=== PATIENT | female | born 1930 | race Caucasian/White ===

== ENCOUNTER 2016-12-26 14:28 | Inpatient (IN) ==
[2016-12-26] MEDS ORDERED: SODIUM CHLORIDE 0.9% 500 ML IV STA (14:50)
[2016-12-26] MEDS ORDERED: NALOXONE 0.4 MG/ML VIAL IV STA (14:50)
[2016-12-26] MEDS ORDERED: NALOXONE 0.4 MG/ML VIAL ONE (15:01)
[2016-12-26 15:32] LABS: Apearance,Urine CLEAR (Clear); Bilirubin,Urine Negative (Negative); Blood, Urine Negative (Negative); Glucose,Urine (UA) Negative (Negative); Ketones,Urine Negative (Negative); Nitrite,Urine Negative (Negative); Protein,Urine Negative; RBC,Urine <1 /HPF (0-4); Squamous Epithelial Cell,Urine Occasional /HPF (0-10); Urine Color Straw (Yellow); Urine Specific Gravity 1.004 (1.001-1.035); Urine Urobilinogen < 2.0 EU/DL (0.2-1.0); WBC,Urine 1 /HPF (0-6)
[2016-12-26 15:37] LABS: Basophils # 0.1 10*3/uL (0.0-0.2); Basophils % 0.5 % (0.0-0.8); Eosinophils # 0.2 10*3/uL (0.0-0.87); Eosinophils % 1.6 % (0.00-10.9); Hematocrit 38.8 VOL% (35.7-47.0); Hemoglobin 12.9 GM/DL (12.0-16.0); Immature Granulocytes % 0.4 %; Immature Granulocytes Absolute 0.06 #; Lymphocytes # 2.5 10*3/uL (1.4-4.0); Lymphocytes % 17.7 % (21.3-54.2); Mean Corpuscular HGB Conc 33.2 GM/DL (32-36); Mean Corpuscular Hemoglobin 28 PG (27-34); Mean Corpuscular Volume 85.1 FL (87-102); Mean Platelet Volume 13.7 FL (9.6-12.0); Monocytes % 7.1 % (1.7-12.7); Neutrophils # 10.3 10*3/uL (1.4-7.4); Neutrophils % 72.7 % (38.7-73.9); Platelet Count 146 T/CUMM (130-400); Red Blood Count 4.56 MC/CUMM (3.8-5.5); Red Cell Distribution Width 13.9 % (9.3-17.3); White Blood Count 14.1 T/CUMM (4-12)
[2016-12-26 15:55] LABS: Barbiturates Screen,Urine Negative (Negative); Benzodiazepines Screen,Urine Negative (Negative); Cannabinoid Screen,Urine Negative (Negative); Opiate Screen,Urine Positive (Negative); Phencyclidine Screen,Urine Negative (Negative)
[2016-12-26 15:58] LABS: Ammonia 17 UMOL/L (11-32)
[2016-12-26 16:16] LABS: Alanine Aminotransferase 23 U/L (13-56); Albumin 3.8 G/DL (3.4-5.0); Alkaline Phosphatase 125 U/L (45-117); Aspartate Amino Transferase 22 U/L (0-37); Calcium 8.8 MG/DL (8.5-10.1); Total Protein 6.8 G/DL (6.4-8.3)
[2016-12-26 16:17] LABS: Blood Urea Nitrogen 39 MG/DL (7-18); Glucose 164 MG/DL (74-106); Osmolality,Calculated 289.5 MOS/KG (273-304); Potassium 3.9 MMOL/L (3.5-5.1); Sodium 139 MMOL/L (136-145)
[2016-12-26 17:11] LABS: INR 1.1; PT Patient Result 11.3 SECS; Partial Thromboplastin Time 25.5 SECS (0-40)
[2016-12-26] MEDS ORDERED: GLUCAGON 1 MG VIAL IM PRN (17:55)
[2016-12-26] MEDS ORDERED: DEXTROSE 50% 25 GM/50 ML VIAL IV PRN (17:55)
[2016-12-26] MEDS ORDERED: ONDANSETRON 4 MG/2 ML VIAL IV PRN (17:55)
[2016-12-26] MEDS ORDERED: LACTULOSE 20 GM/30 ML UDCUP PO PRN (17:55)
[2016-12-26] MEDS ORDERED: INFLUENZA VIRUS VACCINE 0.5 ML SYRINGE IM ONE (18:10)
[2016-12-26] MEDS: SODIUM CHLORIDE 0.9% 1,000 ML IV SCH (18:34)
[2016-12-26] MEDS: PIPERACILLIN/TAZOBACTAM 3,375 MG in SODIUM CHLORIDE 0.9% 100 ML IV SCH (19:18)
[2016-12-26] MEDS: ENOXAPARIN 30 MG/0.3 ML SYRINGE SUBCUT SCH (19:20)
[2016-12-26] MEDS: DOCUSATE SODIUM 100 MG CAPSULE PO SCH (22:06)
[2016-12-26] MEDS: ATORVASTATIN 20 MG TABLET PO SCH (22:06)
[2016-12-26] MEDS: INSULIN REGULAR 100 UNIT/ML SUBCUT SCH (22:09)
[2016-12-27] MEDS: ACETAMINOPHEN 325 MG TABLET PO PRN ×2 (00:35→06:12)
[2016-12-27] MEDS: PIPERACILLIN/TAZOBACTAM 3,375 MG in SODIUM CHLORIDE 0.9% 100 ML IV SCH ×3 (02:36→18:33)
[2016-12-27 04:31] LABS: Basophils # 0.1 10*3/uL (0.0-0.2); Basophils % 0.5 % (0.0-0.8); Eosinophils # 0.3 10*3/uL (0.0-0.87); Eosinophils % 2.4 % (0.00-10.9); Hematocrit 34.1 VOL% (35.7-47.0); Hemoglobin 11.3 GM/DL (12.0-16.0); Immature Granulocytes % 0.4 %; Immature Granulocytes Absolute 0.04 #; Lymphocytes # 2.2 10*3/uL (1.4-4.0); Lymphocytes % 20.1 % (21.3-54.2); Mean Corpuscular HGB Conc 33.1 GM/DL (32-36); Mean Corpuscular Hemoglobin 28 PG (27-34); Mean Corpuscular Volume 84.6 FL (87-102); Mean Platelet Volume 14.7 FL (9.6-12.0); Monocytes # 0.9 10*3/uL (0.11-0.8); Monocytes % 7.8 % (1.7-12.7); Neutrophils # 7.5 10*3/uL (1.4-7.4); Neutrophils % 68.8 % (38.7-73.9); Platelet Count 124 T/CUMM (130-400); Red Blood Count 4.03 MC/CUMM (3.8-5.5); Red Cell Distribution Width 14.1 % (9.3-17.3); White Blood Count 10.9 T/CUMM (4-12)
[2016-12-27 05:11] LABS: Albumin 3.1 G/DL (3.4-5.0); Bilirubin,Total 0.6 MG/DL (0.2-1.0); Calcium 8.2 MG/DL (8.5-10.1); Osmolality,Calculated 299.8 MOS/KG (273-304); Potassium 3.6 MMOL/L (3.5-5.1); Total Protein 5.7 G/DL (6.4-8.3)
[2016-12-27] MEDS ORDERED: RANITIDINE 150 MG TABLET PO SCH (09:00)
[2016-12-27] MEDS ORDERED: PANTOPRAZOLE 40 MG VIAL IV SCH (09:00)
[2016-12-27] MEDS: INSULIN REGULAR 100 UNIT/ML SUBCUT SCH ×4 (09:40→21:01)
[2016-12-27] MEDS: PANTOPRAZOLE 40 MG TABLET PO SCH (10:35)
[2016-12-27] MEDS: DOCUSATE SODIUM 100 MG CAPSULE PO SCH ×2 (10:35→20:49)
[2016-12-27] MEDS: amLODIPine 5 MG TABLET PO SCH (10:35)
[2016-12-27] MEDS: sitaGLIPtin 25 MG TABLET PO SCH (10:35)
[2016-12-27] MEDS: MELOXICAM 7.5 MG TABLET PO SCH (10:35)
[2016-12-27] MEDS ORDERED: TUBERCULIN SKIN TEST 0.1 ML SYRINGE INTRADERM ONE (17:30)
[2016-12-27] MEDS: ENOXAPARIN 30 MG/0.3 ML SYRINGE SUBCUT SCH (20:48)
[2016-12-27] MEDS: ATORVASTATIN 20 MG TABLET PO SCH (20:49)
[2016-12-27] MEDS: ZOLPIDEM 5 MG TABLET PO PRN (22:36)
[2016-12-28] MEDS: PIPERACILLIN/TAZOBACTAM 3,375 MG in SODIUM CHLORIDE 0.9% 100 ML IV SCH ×2 (02:30→09:41)
[2016-12-28] MEDS: SODIUM CHLORIDE 0.9% 1,000 ML IV SCH ×2 (03:59→04:00)
[2016-12-28] MEDS: INSULIN REGULAR 100 UNIT/ML SUBCUT SCH ×4 (07:50→21:12)
[2016-12-28] MEDS: sitaGLIPtin 25 MG TABLET PO SCH (09:26)
[2016-12-28] MEDS: DOCUSATE SODIUM 100 MG CAPSULE PO SCH ×2 (09:27→21:11)
[2016-12-28] MEDS: MELOXICAM 7.5 MG TABLET PO SCH (09:29)
[2016-12-28] MEDS: PANTOPRAZOLE 40 MG TABLET PO SCH (09:34)
[2016-12-28] MEDS: amLODIPine 5 MG TABLET PO SCH (09:34)
[2016-12-28] MEDS: ONDANSETRON 4 MG TABLET PO PRN (17:45)
[2016-12-28] MEDS: ATORVASTATIN 20 MG TABLET PO SCH (21:11)
[2016-12-28] MEDS: ZOLPIDEM 5 MG TABLET PO PRN (21:11)
[2016-12-28] MEDS: GABAPENTIN 300 MG CAPSULE PO SCH (21:11)
[2016-12-28] MEDS: ENOXAPARIN 30 MG/0.3 ML SYRINGE SUBCUT SCH (21:12)
[2016-12-29 07:34] LABS: Basophils # 0.1 10*3/uL (0.0-0.2); Basophils % 0.8 % (0.0-0.8); Eosinophils # 0.2 10*3/uL (0.0-0.87); Eosinophils % 2.9 % (0.00-10.9); Hematocrit 36.3 VOL% (35.7-47.0); Hemoglobin 12.1 GM/DL (12.0-16.0); Immature Granulocytes % 0.6 %; Immature Granulocytes Absolute 0.05 #; Lymphocytes # 1.1 10*3/uL (1.4-4.0); Lymphocytes % 13.4 % (21.3-54.2); Mean Corpuscular HGB Conc 33.3 GM/DL (32-36); Mean Corpuscular Hemoglobin 28 PG (27-34); Mean Corpuscular Volume 84.6 FL (87-102); Mean Platelet Volume 15.3 FL (9.6-12.0); Monocytes # 0.7 10*3/uL (0.11-0.8); Monocytes % 8.2 % (1.7-12.7); Neutrophils # 5.9 10*3/uL (1.4-7.4); Neutrophils % 74.1 % (38.7-73.9); Platelet Count 124 T/CUMM (130-400); Red Blood Count 4.29 MC/CUMM (3.8-5.5); Red Cell Distribution Width 13.9 % (9.3-17.3); White Blood Count 7.9 T/CUMM (4-12)
[2016-12-29] MEDS: INSULIN REGULAR 100 UNIT/ML SUBCUT SCH ×4 (07:39→21:24)
[2016-12-29 07:59] LABS: Calcium 8.8 MG/DL (8.5-10.1); Osmolality,Calculated 284.3 MOS/KG (273-304); Potassium 3.7 MMOL/L (3.5-5.1)
[2016-12-29] MEDS: MELOXICAM 7.5 MG TABLET PO SCH (09:30)
[2016-12-29] MEDS: GABAPENTIN 300 MG CAPSULE PO SCH ×3 (09:30→21:19)
[2016-12-29] MEDS: amLODIPine 5 MG TABLET PO SCH (09:30)
[2016-12-29] MEDS: DOCUSATE SODIUM 100 MG CAPSULE PO SCH ×2 (09:30→21:18)
[2016-12-29] MEDS: PANTOPRAZOLE 40 MG TABLET PO SCH (09:31)
[2016-12-29] MEDS: sitaGLIPtin 25 MG TABLET PO SCH (09:31)
[2016-12-29] MEDS: ONDANSETRON 4 MG TABLET PO PRN (10:25)
[2016-12-29] MEDS: AZITHROMYCIN 250 MG TABLET PO SCH (12:14)
[2016-12-29] MEDS: BENZONATATE 100 MG CAPSULE PO PRN ×2 (15:35→21:18)
[2016-12-29] MEDS: ACETAMINOPHEN 325 MG TABLET PO PRN (17:28)
[2016-12-29] MEDS ORDERED: DEXTROSE 5% NACL 0.45% 1,000 ML IV SCH (20:30)
[2016-12-29] MEDS ORDERED: LEVOFLOXACIN INJ 500 MG in PREMIX 1 EACH IV SCH (21:00)
[2016-12-29] MEDS: ZOLPIDEM 5 MG TABLET PO PRN (21:20)
[2016-12-29] MEDS: ATORVASTATIN 20 MG TABLET PO SCH (21:24)
[2016-12-29] MEDS: ENOXAPARIN 30 MG/0.3 ML SYRINGE SUBCUT SCH (21:26)
[2016-12-30 04:39] LABS: Calcium 8.7 MG/DL (8.5-10.1); Osmolality,Calculated 282.4 MOS/KG (273-304); Potassium 3.7 MMOL/L (3.5-5.1)
[2016-12-30 07:49] VITALS: BP 115/60
[2016-12-30] MEDS: PANTOPRAZOLE 40 MG TABLET PO SCH (08:40)
[2016-12-30] MEDS: GABAPENTIN 300 MG CAPSULE PO SCH (08:40)
[2016-12-30] MEDS: amLODIPine 5 MG TABLET PO SCH (08:40)
[2016-12-30] MEDS: MELOXICAM 7.5 MG TABLET PO SCH (08:40)
[2016-12-30] MEDS: AZITHROMYCIN 250 MG TABLET PO SCH (08:41)
[2016-12-30] MEDS: BENZONATATE 100 MG CAPSULE PO PRN (08:41)
[2016-12-30] MEDS: INSULIN REGULAR 100 UNIT/ML SUBCUT SCH (08:41)
[2016-12-30] MEDS: sitaGLIPtin 25 MG TABLET PO SCH (08:41)
[2016-12-30] MEDS: DOCUSATE SODIUM 100 MG CAPSULE PO SCH (08:41)
== END 2016-12-30 10:35 | disposition home or self-care (01) | DRG 918 ==
LOC: EDUNIT# → N.ED 14:28 → N.EDINP 17:11 → N.2E 17:53
PROVIDERS: ADMIT Family Medicine; ATTEND Family Medicine

== ENCOUNTER 2018-04-28 14:05 | Inpatient (IN) ==
[2018-04-28] MEDS ORDERED: PANTOPRAZOLE 40 MG VIAL IV STA (14:26)
[2018-04-28] MEDS ORDERED: ONDANSETRON 4 MG/2 ML VIAL IV STA (14:26)
[2018-04-28] MEDS ORDERED: ASPIRIN 325 MG TABLET PO STA (14:26)
[2018-04-28] MEDS ORDERED: ALUM/MAG/SIMETH/LIDO VISC 1:1 30 ML BOTTLE PO STA (14:26)
[2018-04-28 15:23] LABS: Basophils # 0.1 10*3/uL (0.0-0.2); Basophils % 0.5 % (0.0-0.8); Hematocrit 38.9 VOL% (35.7-47.0); Hemoglobin 12.8 GM/DL (12.0-16.0); Immature Granulocytes % 0.7 %; Immature Granulocytes Absolute 0.14 #; Lymphocytes # 1.7 10*3/uL (1.4-4.0); Lymphocytes % 8.9 % (21.3-54.2); Mean Corpuscular HGB Conc 32.9 GM/DL (32-36); Mean Corpuscular Hemoglobin 28 PG (27-34); Mean Corpuscular Volume 85.9 FL (87-102); Mean Platelet Volume 13.5 FL (9.6-12.0); Monocytes # 1.6 10*3/uL (0.11-0.8); Monocytes % 8.1 % (1.7-12.7); Neutrophils # 15.9 10*3/uL (1.4-7.4); Neutrophils % 81.8 % (38.7-73.9); Platelet Count 202 T/CUMM (130-400); Red Blood Count 4.53 MC/CUMM (3.8-5.5); Red Cell Distribution Width 13.1 % (9.3-17.3); White Blood Count 19.4 T/CUMM (4-12)
[2018-04-28 15:31] LABS: INR 1.2; PT Patient Result 12.6 SECS; Partial Thromboplastin Time 27.6 SECS (0-40)
[2018-04-28 15:37] LABS: Alanine Aminotransferase 17 U/L (13-56); Albumin 3.5 G/DL (3.4-5.0); Alkaline Phosphatase 133 U/L (45-117); Aspartate Amino Transferase 18 U/L (0-37); Blood Urea Nitrogen 34 MG/DL (7-18); Glucose 390 MG/DL (74-106); Osmolality,Calculated 280.1 MOS/KG (273-304); Potassium 3.4 MMOL/L (3.5-5.1); Sodium 128 MMOL/L (136-145); Total Protein 8.1 G/DL (6.4-8.3); Troponin I < 0.015 NG/ML (0.00-0.045)
[2018-04-28 16:58] LABS: Apearance,Urine CLOUDY (Clear); Bacteria,Urine Many /HPF (Few); Bilirubin,Urine Negative (Negative); Blood, Urine Small mg/dL (Negative); Glucose,Urine (UA) 150 mg/dL (Negative); Hyaline Casts,Urine 59 /LPF (0-3); Ketones,Urine Negative (Negative); Mucus,Urine Occasional /LPF (Occasional); Nitrite,Urine Negative (Negative); Protein,Urine 30 MG/DL; Squamous Epithelial Cell,Urine Occasional /HPF (0-10); Urine Color Amber (Yellow); Urine Specific Gravity 1.016 (1.001-1.035); WBC,Urine 25 /HPF (0-6)
[2018-04-28 17:01] LABS: Barbiturates Screen,Urine Negative (Negative); Benzodiazepines Screen,Urine Negative (Negative); Cannabinoid Screen,Urine Negative (Negative); Opiate Screen,Urine Negative (Negative); Phencyclidine Screen,Urine Negative (Negative)
[2018-04-28] MEDS ORDERED: cefTRIAXone 1,000 MG in SODIUM CHLORIDE 0.9% 100 ML IV STA (17:01)
[2018-04-28] MEDS ORDERED: cefTRIAXone 1,000 MG in SYRINGE 1 EACH IV STA (17:21)
[2018-04-28] MEDS ORDERED: SODIUM CHLORIDE 0.9% 1,000 ML IV STA (17:32)
[2018-04-28] MEDS ORDERED: DEXTROSE 50% 25 GM/50 ML VIAL IV PRN (17:33)
[2018-04-28] MEDS ORDERED: GLUCAGON 1 MG VIAL IM PRN (17:33)
[2018-04-28] MEDS ORDERED: VANCOMYCIN INJ 1,000 MG in SODIUM CHLORIDE 0.9% 250 ML IV ONE (17:36)
[2018-04-28] MEDS ORDERED: cefTRIAXone 1,000 MG in SYRINGE 1 EACH IV SCH (18:00)
[2018-04-28] MEDS: SODIUM CHLORIDE 0.9% 1,000 ML IV SCH (18:37)
[2018-04-28] MEDS: DOCUSATE SODIUM 100 MG CAPSULE PO SCH (21:06)
[2018-04-28] MEDS: ENOXAPARIN 30 MG/0.3 ML SYRINGE SUBCUT SCH (21:06)
[2018-04-28] MEDS: ACETAMINOPHEN 325 MG TABLET PO PRN (21:18)
[2018-04-29] MEDS: INSULIN LISPRO 100 UNIT/ML SUBCUT SCH ×5 (02:14→21:10)
[2018-04-29 06:00] LABS: Basophils % 0.2 % (0.0-0.8); Eosinophils % 0.2 % (0.00-10.9); Hematocrit 32.5 VOL% (35.7-47.0); Immature Granulocytes % 0.3 %; Immature Granulocytes Absolute 0.04 #; Lymphocytes # 0.9 10*3/uL (1.4-4.0); Lymphocytes % 7.5 % (21.3-54.2); Mean Corpuscular HGB Conc 32.6 GM/DL (32-36); Mean Corpuscular Hemoglobin 28 PG (27-34); Mean Corpuscular Volume 86.7 FL (87-102); Mean Platelet Volume 14.4 FL (9.6-12.0); Monocytes # 0.1 10*3/uL (0.11-0.8); Monocytes % 1.1 % (1.7-12.7); Neutrophils # 11.1 10*3/uL (1.4-7.4); Neutrophils % 90.7 % (38.7-73.9); Red Blood Count 3.75 MC/CUMM (3.8-5.5); Red Cell Distribution Width 13.4 % (9.3-17.3)
[2018-04-29 06:01] LABS: White Blood Count 12.2 T/CUMM (4-12)
[2018-04-29 06:02] LABS: Hemoglobin 10.6 GM/DL (12.0-16.0); Platelet Count 138 T/CUMM (130-400)
[2018-04-29 06:33] LABS: Eosinophils 1 % (0-10); Lymphocytes 2 % (20-55); Segmented Neutrophils 97 % (50-85); Total Cells Counted 100
[2018-04-29 06:34] LABS: Hypochromasia Slight; Platelet Estimate Decreased; Polychromasia Few
[2018-04-29] MEDS ORDERED: SODIUM CHLORIDE 0.9% 500 ML IV ONE (07:15)
[2018-04-29] MEDS ORDERED: MORPHINE 4 MG/1 ML VIAL IV PRN (07:27)
[2018-04-29] MEDS: CELECOXIB 100 MG CAPSULE PO SCH ×2 (08:39→21:09)
[2018-04-29] MEDS: DOCUSATE SODIUM 100 MG CAPSULE PO SCH ×2 (08:39→21:07)
[2018-04-29] MEDS: MEROPENEM 1,000 MG in SODIUM CHLORIDE 0.9% 100 ML IV SCH ×2 (08:40→21:11)
[2018-04-29] MEDS: GABAPENTIN 300 MG CAPSULE PO SCH ×4 (08:40→21:07)
[2018-04-29] MEDS: PANTOPRAZOLE 40 MG TABLET PO SCH (08:40)
[2018-04-29] MEDS: ACETAMINOPHEN 325 MG TABLET PO PRN ×2 (08:57→16:22)
[2018-04-29] MEDS: ONDANSETRON 4 MG/2 ML VIAL IV PRN ×2 (12:43→18:33)
[2018-04-29] MEDS: SODIUM CHLORIDE 0.9% 1,000 ML IV SCH ×3 (12:47→21:11)
[2018-04-29] MEDS ORDERED: SODIUM CHLORIDE 0.9% 1,000 ML IV ONE (16:14)
[2018-04-29] MEDS: sitaGLIPtin 100 MG TABLET PO SCH (21:07)
[2018-04-29] MEDS: ATORVASTATIN 20 MG TABLET PO SCH (21:07)
[2018-04-29] MEDS: INSULIN GLARGINE 100 UNIT/ML SUBCUT SCH (21:09)
[2018-04-29] MEDS: ENOXAPARIN 30 MG/0.3 ML SYRINGE SUBCUT SCH (21:09)
[2018-04-30] MEDS: SODIUM CHLORIDE 0.9% 1,000 ML IV SCH (03:28)
[2018-04-30] MEDS ORDERED: SODIUM CHLORIDE 0.9% 500 ML IV ONE (05:31)
[2018-04-30 05:54] LABS: Basophils % 0.4 % (0.0-0.8); Eosinophils # 0.2 10*3/uL (0.0-0.87); Eosinophils % 1.8 % (0.00-10.9); Hematocrit 27.3 VOL% (35.7-47.0); Hemoglobin 8.8 GM/DL (12.0-16.0); Lymphocytes # 1.2 10*3/uL (1.4-4.0); Lymphocytes % 12.1 % (21.3-54.2); Mean Corpuscular HGB Conc 32.2 GM/DL (32-36); Mean Corpuscular Hemoglobin 28 PG (27-34); Mean Corpuscular Volume 87.5 FL (87-102); Mean Platelet Volume 13.9 FL (9.6-12.0); Monocytes # 0.6 10*3/uL (0.11-0.8); Monocytes % 6.2 % (1.7-12.7); Neutrophils # 7.9 10*3/uL (1.4-7.4); Neutrophils % 78.5 % (38.7-73.9); Platelet Count 108 T/CUMM (130-400); Red Blood Count 3.12 MC/CUMM (3.8-5.5); Red Cell Distribution Width 13.6 % (9.3-17.3)
[2018-04-30 06:10] LABS: Calcium 7.5 MG/DL (8.5-10.1); Osmolality,Calculated 280.8 MOS/KG (273-304)
[2018-04-30] MEDS: INSULIN LISPRO 100 UNIT/ML SUBCUT SCH ×4 (07:55→21:16)
[2018-04-30] MEDS ORDERED: POTASSIUM CHLORIDE RIDER 10 MEQ in PREMIX 1 EACH IV PRN (07:58)
[2018-04-30] MEDS: DOCUSATE SODIUM 100 MG CAPSULE PO SCH ×2 (08:46→21:30)
[2018-04-30] MEDS: PANTOPRAZOLE 40 MG TABLET PO SCH (08:46)
[2018-04-30] MEDS: CELECOXIB 100 MG CAPSULE PO SCH ×2 (08:46→21:30)
[2018-04-30] MEDS: GABAPENTIN 300 MG CAPSULE PO SCH ×4 (08:46→21:30)
[2018-04-30] MEDS: MEROPENEM 1,000 MG in SODIUM CHLORIDE 0.9% 100 ML IV SCH ×2 (08:47→21:31)
[2018-04-30] MEDS: POTASSIUM CHLORIDE 20 MEQ TABLET PO PRN ×4 (08:47→17:38)
[2018-04-30] MEDS: ONDANSETRON 4 MG/2 ML VIAL IV PRN (08:52)
[2018-04-30] MEDS ORDERED: MORPHINE 4 MG/1 ML VIAL IV ONE (10:11)
[2018-04-30] MEDS: POTASSIUM CHLORIDE INJ 10 MEQ in SODIUM CHLORIDE 0.9% 1,000 ML IV SCH ×2 (10:30→21:15)
[2018-04-30] MEDS ORDERED: VANCOMYCIN INJ 1,000 MG in SODIUM CHLORIDE 0.9% 250 ML IV SCH (18:30)
[2018-04-30] MEDS: ENOXAPARIN 30 MG/0.3 ML SYRINGE SUBCUT SCH (21:30)
[2018-04-30] MEDS: sitaGLIPtin 100 MG TABLET PO SCH (21:30)
[2018-04-30] MEDS: ATORVASTATIN 20 MG TABLET PO SCH (21:30)
[2018-04-30] MEDS: INSULIN GLARGINE 100 UNIT/ML SUBCUT SCH (21:31)
[2018-04-30] MEDS: ACETAMINOPHEN 325 MG TABLET PO PRN (23:28)
[2018-05-01] MEDS: POTASSIUM CHLORIDE INJ 10 MEQ in SODIUM CHLORIDE 0.9% 1,000 ML IV SCH ×3 (02:32→18:08)
[2018-05-01 05:47] LABS: Calcium 7.7 MG/DL (8.5-10.1); Osmolality,Calculated 282.3 MOS/KG (273-304)
[2018-05-01] MEDS: INSULIN LISPRO 100 UNIT/ML SUBCUT SCH ×4 (07:55→22:54)
[2018-05-01] MEDS: MEROPENEM 1,000 MG in SODIUM CHLORIDE 0.9% 100 ML IV SCH ×2 (08:23→22:52)
[2018-05-01] MEDS: DOCUSATE SODIUM 100 MG CAPSULE PO SCH ×2 (08:24→22:53)
[2018-05-01] MEDS: PANTOPRAZOLE 40 MG TABLET PO SCH (08:24)
[2018-05-01] MEDS: GABAPENTIN 300 MG CAPSULE PO SCH ×4 (08:24→22:53)
[2018-05-01] MEDS: ONDANSETRON 4 MG/2 ML VIAL IV PRN ×2 (08:30→23:00)
[2018-05-01] MEDS: CELECOXIB 100 MG CAPSULE PO SCH ×2 (11:07→23:04)
[2018-05-01] MEDS: INSULIN GLARGINE 100 UNIT/ML SUBCUT SCH ×2 (22:53→23:12)
[2018-05-01] MEDS: sitaGLIPtin 100 MG TABLET PO SCH (22:53)
[2018-05-01] MEDS: ENOXAPARIN 30 MG/0.3 ML SYRINGE SUBCUT SCH (22:53)
[2018-05-01] MEDS: ATORVASTATIN 20 MG TABLET PO SCH (22:53)
[2018-05-02] MEDS: POTASSIUM CHLORIDE INJ 10 MEQ in SODIUM CHLORIDE 0.9% 1,000 ML IV SCH ×3 (02:36→21:19)
[2018-05-02] MEDS: GABAPENTIN 300 MG CAPSULE PO SCH ×4 (09:43→21:20)
[2018-05-02] MEDS: INSULIN LISPRO 100 UNIT/ML SUBCUT SCH ×4 (09:43→21:21)
[2018-05-02] MEDS: CELECOXIB 100 MG CAPSULE PO SCH ×2 (09:43→21:20)
[2018-05-02] MEDS: POTASSIUM CHLORIDE 20 MEQ TABLET PO PRN (09:43)
[2018-05-02] MEDS: DOCUSATE SODIUM 100 MG CAPSULE PO SCH ×2 (09:44→21:20)
[2018-05-02] MEDS: MEROPENEM 1,000 MG in SODIUM CHLORIDE 0.9% 100 ML IV SCH ×2 (09:44→21:20)
[2018-05-02] MEDS: PANTOPRAZOLE 40 MG TABLET PO SCH (09:46)
[2018-05-02] MEDS: ONDANSETRON 4 MG/2 ML VIAL IV PRN (11:58)
[2018-05-02 20:31] LABS: Basophils % 0.5 % (0.0-0.8); Eosinophils # 0.1 10*3/uL (0.0-0.87); Eosinophils % 2.1 % (0.00-10.9); Hematocrit 28.7 VOL% (35.7-47.0); Hemoglobin 9.1 GM/DL (12.0-16.0); Immature Granulocytes % 0.9 %; Immature Granulocytes Absolute 0.06 #; Lymphocytes # 1.3 10*3/uL (1.4-4.0); Lymphocytes % 19.1 % (21.3-54.2); Mean Corpuscular HGB Conc 31.7 GM/DL (32-36); Mean Corpuscular Hemoglobin 28 PG (27-34); Mean Corpuscular Volume 88.6 FL (87-102); Mean Platelet Volume 13.2 FL (9.6-12.0); Monocytes # 0.6 10*3/uL (0.11-0.8); Monocytes % 8.8 % (1.7-12.7); Neutrophils # 4.5 10*3/uL (1.4-7.4); Neutrophils % 68.6 % (38.7-73.9); Platelet Count 145 T/CUMM (130-400); Red Blood Count 3.24 MC/CUMM (3.8-5.5); Red Cell Distribution Width 14.3 % (9.3-17.3); White Blood Count 6.6 T/CUMM (4-12)
[2018-05-02] MEDS: FAMOTIDINE 20 MG TABLET PO SCH (21:20)
[2018-05-02] MEDS: ENOXAPARIN 40 MG/0.4 ML SYRINGE SUBCUT SCH (21:20)
[2018-05-02] MEDS: sitaGLIPtin 100 MG TABLET PO SCH (21:20)
[2018-05-02] MEDS: ATORVASTATIN 20 MG TABLET PO SCH (21:21)
[2018-05-02] MEDS: INSULIN GLARGINE 100 UNIT/ML SUBCUT SCH (21:24)
[2018-05-03] MEDS: POTASSIUM CHLORIDE INJ 10 MEQ in SODIUM CHLORIDE 0.9% 1,000 ML IV SCH ×2 (00:19→14:29)
[2018-05-03 05:54] LABS: Basophils % 0.7 % (0.0-0.8); Eosinophils # 0.1 10*3/uL (0.0-0.87); Eosinophils % 2.4 % (0.00-10.9); Hematocrit 27.3 VOL% (35.7-47.0); Hemoglobin 8.8 GM/DL (12.0-16.0); Immature Granulocytes % 1.2 %; Immature Granulocytes Absolute 0.07 #; Lymphocytes # 1.4 10*3/uL (1.4-4.0); Lymphocytes % 23.4 % (21.3-54.2); Mean Corpuscular HGB Conc 32.2 GM/DL (32-36); Mean Corpuscular Hemoglobin 28 PG (27-34); Mean Corpuscular Volume 87.2 FL (87-102); Mean Platelet Volume 13.5 FL (9.6-12.0); Monocytes # 0.6 10*3/uL (0.11-0.8); Monocytes % 9.5 % (1.7-12.7); Neutrophils # 3.6 10*3/uL (1.4-7.4); Neutrophils % 62.8 % (38.7-73.9); Platelet Count 154 T/CUMM (130-400); Red Blood Count 3.13 MC/CUMM (3.8-5.5); Red Cell Distribution Width 14.3 % (9.3-17.3); White Blood Count 5.8 T/CUMM (4-12)
[2018-05-03 06:23] LABS: Osmolality,Calculated 283.8 MOS/KG (273-304); Potassium 4.1 MMOL/L (3.5-5.1)
[2018-05-03] MEDS: DOCUSATE SODIUM 100 MG CAPSULE PO SCH ×2 (08:34→20:26)
[2018-05-03] MEDS: CELECOXIB 100 MG CAPSULE PO SCH ×2 (08:34→20:26)
[2018-05-03] MEDS: GABAPENTIN 300 MG CAPSULE PO SCH ×4 (08:34→20:26)
[2018-05-03] MEDS: MEROPENEM 1,000 MG in SODIUM CHLORIDE 0.9% 100 ML IV SCH ×2 (08:34→21:45)
[2018-05-03] MEDS: FAMOTIDINE 20 MG TABLET PO SCH ×2 (08:34→20:26)
[2018-05-03] MEDS: INSULIN LISPRO 100 UNIT/ML SUBCUT SCH ×4 (08:39→20:17)
[2018-05-03] MEDS: ONDANSETRON 4 MG/2 ML VIAL IV PRN (14:34)
[2018-05-03] MEDS ORDERED: NYSTATIN 500,000 UNIT/5 ML UDCUP SWISH/SWAL SCH (17:00)
[2018-05-03] MEDS: NYSTATIN 500,000 UNIT/5 ML UDCUP SWISH/SWAL SCH ×2 (17:40→20:26)
[2018-05-03] MEDS: INSULIN GLARGINE 100 UNIT/ML SUBCUT SCH (20:17)
[2018-05-03] MEDS: ATORVASTATIN 20 MG TABLET PO SCH (20:26)
[2018-05-03] MEDS: ENOXAPARIN 40 MG/0.4 ML SYRINGE SUBCUT SCH (20:26)
[2018-05-03] MEDS: sitaGLIPtin 100 MG TABLET PO SCH (20:26)
[2018-05-04] MEDS: ONDANSETRON 4 MG/2 ML VIAL IV PRN (01:25)
[2018-05-04 05:23] LABS: Basophils % 0.7 % (0.0-0.8); Eosinophils # 0.2 10*3/uL (0.0-0.87); Eosinophils % 3.1 % (0.00-10.9); Hematocrit 31.2 VOL% (35.7-47.0); Hemoglobin 9.9 GM/DL (12.0-16.0); Immature Granulocytes Absolute 0.12 #; Lymphocytes # 1.6 10*3/uL (1.4-4.0); Lymphocytes % 26.5 % (21.3-54.2); Mean Corpuscular HGB Conc 31.7 GM/DL (32-36); Mean Corpuscular Hemoglobin 28 PG (27-34); Mean Corpuscular Volume 88.6 FL (87-102); Mean Platelet Volume 12.6 FL (9.6-12.0); Monocytes # 0.8 10*3/uL (0.11-0.8); Neutrophils # 3.3 10*3/uL (1.4-7.4); Neutrophils % 54.7 % (38.7-73.9); Platelet Count 185 T/CUMM (130-400); Red Blood Count 3.52 MC/CUMM (3.8-5.5); Red Cell Distribution Width 14.2 % (9.3-17.3); White Blood Count 6.1 T/CUMM (4-12)
[2018-05-04 05:43] LABS: Calcium 8.3 MG/DL (8.5-10.1); Osmolality,Calculated 282.8 MOS/KG (273-304); Potassium 4.1 MMOL/L (3.5-5.1)
[2018-05-04] MEDS: INSULIN LISPRO 100 UNIT/ML SUBCUT SCH (07:31)
[2018-05-04 07:51] VITALS: BP 143/82
[2018-05-04] MEDS: MEROPENEM 1,000 MG in SODIUM CHLORIDE 0.9% 100 ML IV SCH (08:43)
[2018-05-04] MEDS: DOCUSATE SODIUM 100 MG CAPSULE PO SCH (08:43)
[2018-05-04] MEDS: NYSTATIN 500,000 UNIT/5 ML UDCUP SWISH/SWAL SCH (08:43)
[2018-05-04] MEDS: FAMOTIDINE 20 MG TABLET PO SCH (08:43)
[2018-05-04] MEDS: GABAPENTIN 300 MG CAPSULE PO SCH (08:43)
[2018-05-04] MEDS: CELECOXIB 100 MG CAPSULE PO SCH (08:45)
[2018-05-04] MEDS ORDERED: CHLORTHALIDONE 25 MG TABLET PO SCH (09:00)
[2018-05-04] MEDS ORDERED: LOSARTAN 25 MG TABLET PO SCH (09:00)
[2018-05-04] MEDS ORDERED: PANTOPRAZOLE 40 MG TABLET PO SCH (21:00)
== END 2018-05-04 11:47 | disposition home or self-care (01) | DRG 872 ==
LOC: N.ED 14:05 → N.EDINP 17:33 → N.2E 17:56
PROVIDERS: ADMIT Family Medicine; ATTEND Family Medicine

== ENCOUNTER 2018-09-16 11:06 | Inpatient (IN) ==
[2018-09-16] MEDS ORDERED: DEXTROSE 50% 25 GM/50 ML VIAL IV PRN (12:14)
[2018-09-16] MEDS ORDERED: GLUCAGON 1 MG VIAL IM PRN (12:14)
[2018-09-16] MEDS ORDERED: ACETAMINOPHEN 325 MG TABLET PO PRN (12:14)
[2018-09-16] MEDS ORDERED: MORPHINE 4 MG/1 ML VIAL IV PRN (12:14)
[2018-09-16 14:27] LABS: Basophils # 0.1 10*3/uL (0.0-0.2); Basophils % 0.8 % (0.0-0.8); Eosinophils # 0.2 10*3/uL (0.0-0.87); Eosinophils % 1.8 % (0.00-10.9); Hematocrit 40.7 VOL% (35.7-47.0); Hemoglobin 12.8 GM/DL (12.0-16.0); Immature Granulocytes % 0.8 %; Immature Granulocytes Absolute 0.09 #; Lymphocytes # 2.7 10*3/uL (1.4-4.0); Lymphocytes % 24.8 % (21.3-54.2); Mean Corpuscular HGB Conc 31.4 GM/DL (32-36); Mean Corpuscular Volume 88.3 FL (87-102); Mean Platelet Volume 14.2 FL (9.6-12.0); Neutrophils % 63.8 % (38.7-73.9); Platelet Count 143 T/CUMM (130-400); Red Blood Count 4.61 MC/CUMM (3.8-5.5); Red Cell Distribution Width 14.1 % (9.3-17.3); White Blood Count 10.7 T/CUMM (4-12)
[2018-09-16 14:46] LABS: Albumin 4.2 G/DL (3.4-5.0); Bilirubin,Total 0.4 MG/DL (0.2-1.0); Calcium 9.4 MG/DL (8.5-10.1); Total Protein 7.9 G/DL (6.4-8.3)
[2018-09-16] MEDS: SODIUM CHLORIDE 0.45% 1,000 ML IV SCH (16:14)
[2018-09-16] MEDS: INSULIN LISPRO 100 UNIT/ML SUBCUT SCH ×2 (16:15→21:40)
[2018-09-16] MEDS: CEFTAROLINE 600 MG in SODIUM CHLORIDE 0.9% 100 ML IV SCH (18:31)
[2018-09-16] MEDS: DOCUSATE SODIUM 100 MG CAPSULE PO SCH (21:38)
[2018-09-16] MEDS: sitaGLIPtin 100 MG TABLET PO SCH (21:38)
[2018-09-16] MEDS: ATORVASTATIN 20 MG TABLET PO SCH (21:38)
[2018-09-16] MEDS: CELECOXIB 100 MG CAPSULE PO SCH (21:38)
[2018-09-16] MEDS: INSULIN GLARGINE 100 UNIT/ML SUBCUT SCH (21:40)
[2018-09-16] MEDS: ENOXAPARIN 30 MG/0.3 ML SYRINGE SUBCUT SCH (21:40)
[2018-09-17] MEDS: CEFTAROLINE 600 MG in SODIUM CHLORIDE 0.9% 100 ML IV SCH ×2 (05:44→17:31)
[2018-09-17] MEDS: SODIUM CHLORIDE 0.45% 1,000 ML IV SCH ×2 (05:44→22:16)
[2018-09-17] MEDS: ONDANSETRON 4 MG/2 ML VIAL IV PRN ×3 (08:29→19:50)
[2018-09-17] MEDS: INSULIN LISPRO 100 UNIT/ML SUBCUT SCH ×4 (08:30→20:46)
[2018-09-17] MEDS: PANTOPRAZOLE 40 MG TABLET PO SCH (08:31)
[2018-09-17] MEDS: CELECOXIB 100 MG CAPSULE PO SCH ×2 (08:31→20:45)
[2018-09-17] MEDS: DOCUSATE SODIUM 100 MG CAPSULE PO SCH ×2 (12:40→20:45)
[2018-09-17] MEDS: BACITRACIN OINT 0.9 GM PACK TOP SCH (15:06)
[2018-09-17 19:56] LABS: Apearance,Urine CLEAR (Clear); Bilirubin,Urine Negative (Negative); Blood, Urine Negative (Negative); Glucose,Urine (UA) Negative (Negative); Ketones,Urine Negative (Negative); Mucus,Urine Occasional /LPF (Occasional); Nitrite,Urine Negative (Negative); Protein,Urine Negative; RBC,Urine 1 /HPF (0-4); Squamous Epithelial Cell,Urine Occasional /HPF (0-10); Urine Color Straw (Yellow); Urine Specific Gravity 1.005 (1.001-1.035); Urine Urobilinogen < 2.0 EU/DL (0.2-1.0); WBC,Urine <1 /HPF (0-6)
[2018-09-17] MEDS: sitaGLIPtin 100 MG TABLET PO SCH (20:45)
[2018-09-17] MEDS: ATORVASTATIN 20 MG TABLET PO SCH (20:45)
[2018-09-17] MEDS: ENOXAPARIN 30 MG/0.3 ML SYRINGE SUBCUT SCH (20:46)
[2018-09-17] MEDS: INSULIN GLARGINE 100 UNIT/ML SUBCUT SCH (20:46)
[2018-09-18] MEDS: CEFTAROLINE 600 MG in SODIUM CHLORIDE 0.9% 100 ML IV SCH (05:46)
[2018-09-18] MEDS: ONDANSETRON 4 MG/2 ML VIAL IV PRN (06:32)
[2018-09-18 07:21] VITALS: BP 160/96
[2018-09-18] MEDS: INSULIN LISPRO 100 UNIT/ML SUBCUT SCH (07:41)
[2018-09-18] MEDS: CELECOXIB 100 MG CAPSULE PO SCH (09:10)
[2018-09-18] MEDS: PANTOPRAZOLE 40 MG TABLET PO SCH (09:10)
[2018-09-18] MEDS: BACITRACIN OINT 0.9 GM PACK TOP SCH (09:10)
[2018-09-18] MEDS: DOCUSATE SODIUM 100 MG CAPSULE PO SCH (09:10)
[2018-09-18] MEDS: SODIUM CHLORIDE 0.45% 1,000 ML IV SCH (11:21)
== END 2018-09-18 11:46 | disposition home or self-care (01) | DRG 639 ==
LOC: N.2E 12:51
PROVIDERS: ADMIT Family Medicine; ATTEND Family Medicine

== ENCOUNTER 2019-02-24 10:41 | Observation (INO) ==
[2019-02-24 11:25] LABS: Apearance,Urine Slightly Hazy (Clear); Bacteria,Urine Many /HPF (Few); Bilirubin,Urine Negative (Negative); Blood, Urine Negative (Negative); Glucose,Urine (UA) Negative (Negative); Ketones,Urine Negative (Negative); Mucus,Urine Occasional /LPF (Occasional); Nitrite,Urine Negative (Negative); Protein,Urine Negative; RBC,Urine 1 /HPF (0-4); Squamous Epithelial Cell,Urine Occasional /HPF (0-10); Urine Color Yellow (Yellow); WBC,Urine 89 /HPF (0-6)
[2019-02-24] MEDS ORDERED: ACETAMINOPHEN 325 MG TABLET PO PRN (12:25)
[2019-02-24] MEDS ORDERED: cefTRIAXone 1,000 MG in SODIUM CHLORIDE 0.9% 100 ML IV STA (12:25)
[2019-02-24 12:37] LABS: Basophils % 0.7 % (0.0-0.8); Eosinophils # 0.1 10*3/uL (0.0-0.87); Eosinophils % 1.5 % (0.00-10.9); Hematocrit 35.9 VOL% (35.7-47.0); Hemoglobin 11.7 GM/DL (12.0-16.0); Immature Granulocytes % 0.3 %; Immature Granulocytes Absolute 0.02 #; Lymphocytes # 1.7 10*3/uL (1.4-4.0); Lymphocytes % 29.9 % (21.3-54.2); Mean Corpuscular HGB Conc 32.6 GM/DL (32-36); Mean Corpuscular Volume 87.1 FL (87-102); Mean Platelet Volume 14.1 FL (9.6-12.0); Monocytes % 8.8 % (1.7-12.7); Neutrophils % 58.8 % (38.7-73.9); Platelet Count 106 T/CUMM (130-400); Red Blood Count 4.12 MC/CUMM (3.8-5.5); White Blood Count 5.8 T/CUMM (4-12)
[2019-02-24 12:55] LABS: Albumin 3.4 G/DL (3.4-5.0); Bilirubin,Total 1.5 MG/DL (0.2-1.0); Calcium 9.3 MG/DL (8.5-10.1); Osmolality,Calculated 284.3 MOS/KG (273-304); Total Protein 6.9 G/DL (6.4-8.3)
[2019-02-24] MEDS ORDERED: GLUCAGON 1 MG VIAL IM PRN (13:34)
[2019-02-24] MEDS ORDERED: DEXTROSE 50% 25 GM/50 ML VIAL IV PRN (13:34)
[2019-02-24] MEDS ORDERED: traZODone 50 MG TABLET PO PRN (14:29)
[2019-02-24] MEDS: INSULIN LISPRO 100 UNIT/ML SUBCUT SCH ×2 (16:08→20:43)
[2019-02-24] MEDS: GABAPENTIN 300 MG CAPSULE PO SCH ×2 (17:40→20:35)
[2019-02-24] MEDS: MIDODRINE 2.5 MG TABLET PO SCH ×2 (17:41→20:35)
[2019-02-24] MEDS: SODIUM CHLORIDE 0.45% 1,000 ML IV SCH (17:41)
[2019-02-24] MEDS: METHENAMINE HIPPURATE 1 GM TABLET PO SCH (20:34)
[2019-02-24] MEDS: ATORVASTATIN 20 MG TABLET PO SCH (20:34)
[2019-02-24] MEDS: DOCUSATE SODIUM 100 MG CAPSULE PO SCH (20:34)
[2019-02-24] MEDS: LOSARTAN 50 MG TABLET PO SCH (20:43)
[2019-02-24] MEDS: sitaGLIPtin 100 MG TABLET PO SCH (20:43)
[2019-02-24] MEDS: INSULIN GLARGINE 100 UNIT/ML SUBCUT SCH (20:43)
[2019-02-24] MEDS ORDERED: NON-FORMULARY MEDICATION (Omeprazole 20 MG) PO SCH (21:00)
[2019-02-25] MEDS: SODIUM CHLORIDE 0.45% 1,000 ML IV SCH ×2 (02:00→15:48)
[2019-02-25] MEDS ORDERED: LACTATED RINGERS 1,000 ML IV SCH (08:00)
[2019-02-25] MEDS: INSULIN LISPRO 100 UNIT/ML SUBCUT SCH ×4 (08:35→20:04)
[2019-02-25] MEDS: cefTRIAXone 1,000 MG in SYRINGE 1 EACH IV SCH (08:39)
[2019-02-25] MEDS ORDERED: ETOMIDATE 20 MG/10 ML VIAL IV ONE (10:00)
[2019-02-25] MEDS ORDERED: propofoL 200 MG/20 ML VIAL IV ONE (10:00)
[2019-02-25] MEDS ORDERED: LIDOCAINE 100 MG/5 ML SYRINGE ONE (10:00)
[2019-02-25] MEDS: PANTOPRAZOLE 40 MG TABLET PO SCH (14:48)
[2019-02-25] MEDS: DOCUSATE SODIUM 100 MG CAPSULE PO SCH ×2 (14:48→20:03)
[2019-02-25] MEDS: GABAPENTIN 300 MG CAPSULE PO SCH ×4 (14:48→20:03)
[2019-02-25] MEDS: MIDODRINE 2.5 MG TABLET PO SCH ×3 (14:48→20:03)
[2019-02-25] MEDS: METHENAMINE HIPPURATE 1 GM TABLET PO SCH ×2 (14:49→20:03)
[2019-02-25] MEDS: CHLORTHALIDONE 25 MG TABLET PO SCH (14:49)
[2019-02-25] MEDS: ESCITALOPRAM 10 MG TABLET PO SCH (14:49)
[2019-02-25] MEDS: ONDANSETRON 4 MG/2 ML VIAL IV PRN (15:01)
[2019-02-25] MEDS: LOSARTAN 50 MG TABLET PO SCH (20:04)
[2019-02-25] MEDS: sitaGLIPtin 100 MG TABLET PO SCH (20:04)
[2019-02-25] MEDS: ATORVASTATIN 20 MG TABLET PO SCH (20:04)
[2019-02-25] MEDS: INSULIN GLARGINE 100 UNIT/ML SUBCUT SCH (20:04)
[2019-02-26] MEDS: SODIUM CHLORIDE 0.45% 1,000 ML IV SCH ×3 (03:29→23:55)
[2019-02-26] MEDS: INSULIN LISPRO 100 UNIT/ML SUBCUT SCH ×4 (07:07→20:37)
[2019-02-26] MEDS: CHLORTHALIDONE 25 MG TABLET PO SCH (08:17)
[2019-02-26] MEDS: MIDODRINE 2.5 MG TABLET PO SCH ×3 (08:37→21:35)
[2019-02-26] MEDS: cefTRIAXone 1,000 MG in SYRINGE 1 EACH IV SCH (08:38)
[2019-02-26] MEDS: DOCUSATE SODIUM 100 MG CAPSULE PO SCH ×2 (08:38→21:36)
[2019-02-26] MEDS: ESCITALOPRAM 10 MG TABLET PO SCH (08:38)
[2019-02-26] MEDS: GABAPENTIN 300 MG CAPSULE PO SCH ×4 (08:38→21:36)
[2019-02-26] MEDS: METHENAMINE HIPPURATE 1 GM TABLET PO SCH ×2 (08:38→21:35)
[2019-02-26] MEDS: PANTOPRAZOLE 40 MG TABLET PO SCH (08:38)
[2019-02-26] MEDS ORDERED: DEXTROSE 50% 25 GM/50 ML VIAL IV PRN (10:18)
[2019-02-26] MEDS: ATORVASTATIN 20 MG TABLET PO SCH (21:36)
[2019-02-26] MEDS: LOSARTAN 50 MG TABLET PO SCH (21:36)
[2019-02-26] MEDS: sitaGLIPtin 100 MG TABLET PO SCH (21:36)
[2019-02-26] MEDS: INSULIN GLARGINE 100 UNIT/ML SUBCUT SCH (21:51)
[2019-02-27] MEDS: INSULIN LISPRO 100 UNIT/ML SUBCUT SCH ×4 (07:17→21:14)
[2019-02-27] MEDS: CHLORTHALIDONE 25 MG TABLET PO SCH (08:17)
[2019-02-27] MEDS: PANTOPRAZOLE 40 MG TABLET PO SCH (08:17)
[2019-02-27] MEDS: ESCITALOPRAM 10 MG TABLET PO SCH (08:17)
[2019-02-27] MEDS: DOCUSATE SODIUM 100 MG CAPSULE PO SCH ×2 (08:17→21:00)
[2019-02-27] MEDS: MIDODRINE 2.5 MG TABLET PO SCH ×3 (08:17→20:59)
[2019-02-27] MEDS: GABAPENTIN 300 MG CAPSULE PO SCH ×4 (08:17→20:59)
[2019-02-27] MEDS: METHENAMINE HIPPURATE 1 GM TABLET PO SCH ×2 (08:17→20:59)
[2019-02-27] MEDS: cefTRIAXone 1,000 MG in SYRINGE 1 EACH IV SCH (08:18)
[2019-02-27] MEDS: SODIUM CHLORIDE 0.45% 1,000 ML IV SCH (09:31)
[2019-02-27] MEDS: ONDANSETRON 4 MG/2 ML VIAL IV PRN (12:05)
[2019-02-27] MEDS: INSULIN GLARGINE 100 UNIT/ML SUBCUT SCH (21:00)
[2019-02-27] MEDS: sitaGLIPtin 100 MG TABLET PO SCH (21:00)
[2019-02-27] MEDS: LOSARTAN 50 MG TABLET PO SCH (21:00)
[2019-02-27] MEDS: ATORVASTATIN 20 MG TABLET PO SCH (21:00)
[2019-02-28] MEDS: SODIUM CHLORIDE 0.45% 1,000 ML IV SCH (04:44)
[2019-02-28 05:57] LABS: Basophils % 0.7 % (0.0-0.8); Eosinophils # 0.2 10*3/uL (0.0-0.87); Eosinophils % 3.7 % (0.00-10.9); Hematocrit 31.7 VOL% (35.7-47.0); Hemoglobin 10.5 GM/DL (12.0-16.0); Immature Granulocytes % 0.3 %; Immature Granulocytes Absolute 0.02 #; Lymphocytes # 1.7 10*3/uL (1.4-4.0); Lymphocytes % 28.9 % (21.3-54.2); Mean Corpuscular HGB Conc 33.1 GM/DL (32-36); Mean Corpuscular Volume 86.4 FL (87-102); Mean Platelet Volume 15.2 FL (9.6-12.0); Monocytes % 8.8 % (1.7-12.7); Neutrophils % 57.6 % (38.7-73.9); Red Blood Count 3.67 MC/CUMM (3.8-5.5); Red Cell Distribution Width 13.8 % (9.3-17.3); White Blood Count 5.9 T/CUMM (4-12)
[2019-02-28 06:10] LABS: Platelet Count 96 T/CUMM (130-400)
[2019-02-28 06:24] LABS: Hypochromasia Slight; Platelet Estimate Decreased
[2019-02-28 06:35] LABS: Calcium 8.4 MG/DL (8.5-10.1); Osmolality,Calculated 272.7 MOS/KG (273-304)
[2019-02-28] MEDS: INSULIN LISPRO 100 UNIT/ML SUBCUT SCH ×4 (07:10→21:55)
[2019-02-28] MEDS: CHLORTHALIDONE 25 MG TABLET PO SCH (08:44)
[2019-02-28] MEDS: ESCITALOPRAM 10 MG TABLET PO SCH (08:47)
[2019-02-28] MEDS: MIDODRINE 2.5 MG TABLET PO SCH ×3 (08:47→21:54)
[2019-02-28] MEDS: PANTOPRAZOLE 40 MG TABLET PO SCH (08:47)
[2019-02-28] MEDS: GABAPENTIN 300 MG CAPSULE PO SCH ×4 (08:48→21:55)
[2019-02-28] MEDS: METHENAMINE HIPPURATE 1 GM TABLET PO SCH ×2 (08:48→21:54)
[2019-02-28] MEDS: DOCUSATE SODIUM 100 MG CAPSULE PO SCH ×2 (08:48→21:54)
[2019-02-28] MEDS: cefTRIAXone 1,000 MG in SYRINGE 1 EACH IV SCH (08:51)
[2019-02-28] MEDS: POTASSIUM CHLORIDE 10 MEQ TABLET PO SCH ×2 (14:17→21:54)
[2019-02-28] MEDS: sitaGLIPtin 100 MG TABLET PO SCH (21:54)
[2019-02-28] MEDS: LOSARTAN 50 MG TABLET PO SCH (21:54)
[2019-02-28] MEDS: ATORVASTATIN 20 MG TABLET PO SCH (21:55)
[2019-02-28] MEDS: INSULIN GLARGINE 100 UNIT/ML SUBCUT SCH (22:03)
[2019-03-01] MEDS: SODIUM CHLORIDE 0.45% 1,000 ML IV SCH (00:26)
[2019-03-01] MEDS: INSULIN LISPRO 100 UNIT/ML SUBCUT SCH (08:06)
[2019-03-01 08:11] VITALS: BP 119/56
[2019-03-01] MEDS: cefTRIAXone 1,000 MG in SYRINGE 1 EACH IV SCH (09:00)
[2019-03-01] MEDS: CHLORTHALIDONE 25 MG TABLET PO SCH (09:00)
[2019-03-01] MEDS: PANTOPRAZOLE 40 MG TABLET PO SCH (09:01)
[2019-03-01] MEDS: DOCUSATE SODIUM 100 MG CAPSULE PO SCH (09:01)
[2019-03-01] MEDS: METHENAMINE HIPPURATE 1 GM TABLET PO SCH (09:01)
[2019-03-01] MEDS: ESCITALOPRAM 10 MG TABLET PO SCH (09:01)
[2019-03-01] MEDS: GABAPENTIN 300 MG CAPSULE PO SCH (09:01)
[2019-03-01] MEDS: MIDODRINE 2.5 MG TABLET PO SCH (09:01)
[2019-03-20] MEDS ORDERED: CYANOCOBALAMIN 1000 MCG/1 ML VIAL IM SCH (09:00)
== END 2019-03-01 11:17 | disposition home or self-care (01) ==
LOC: N.ED 10:41 → N.EDINP 10:41 → N.2E 14:04
PROVIDERS: ADMIT Family Medicine; ATTEND Family Medicine

== ENCOUNTER 2020-01-25 19:25 | Observation (INO) ==
[2020-01-25] MEDS ORDERED: LABETALOL 20 MG/4 ML SYRINGE IV STA (20:12)
[2020-01-25 20:38] LABS: Basophils # 0.1 10*3/uL (0.0-0.2); Basophils % 0.8 % (0.0-0.8); Eosinophils # 0.2 10*3/uL (0.0-0.87); Eosinophils % 2.1 % (0.00-10.9); Hematocrit 41.9 VOL% (35.7-47.0); Hemoglobin 14.3 GM/DL (12.0-16.0); Immature Granulocytes % 0.3 %; Immature Granulocytes Absolute 0.02 #; Lymphocytes # 2.8 10*3/uL (1.4-4.0); Lymphocytes % 38.9 % (21.3-54.2); Mean Corpuscular HGB Conc 34.1 GM/DL (32-36); Mean Corpuscular Volume 86.6 FL (87-102); Mean Platelet Volume 13.9 FL (9.6-12.0); Monocytes % 8.3 % (1.7-12.7); Neutrophils % 49.6 % (38.7-73.9); Platelet Count 130 T/CUMM (130-400); Red Blood Count 4.84 MC/CUMM (3.8-5.5); White Blood Count 7.2 T/CUMM (4-12)
[2020-01-25 20:54] LABS: Bilirubin,Total 0.5 MG/DL (0.2-1.0); Calcium 9.8 MG/DL (8.5-10.1); Osmolality,Calculated 284.5 MOS/KG (273-304); Total Protein 7.5 G/DL (6.4-8.3)
[2020-01-25 20:58] LABS: Lymphocytes 47 % (20-55); Segmented Neutrophils 45 % (50-85); Total Cells Counted 100
[2020-01-25 20:59] LABS: Microcytosis Slight; Platelet Estimate Normal
[2020-01-25 22:00] LABS: Bilirubin,Urine Negative (Negative); Blood, Urine Moderate mg/dL (Negative); Glucose,Urine (UA) Negative (Negative); Hyaline Casts,Urine 3 /LPF (0-3); Ketones,Urine 20 mg/dL (Negative); Mucus,Urine Occasional /LPF (Occasional); Nitrite,Urine Negative (Negative); Protein,Urine 30 MG/DL; RBC,Urine 2 /HPF (0-4); Squamous Epithelial Cell,Urine Occasional /HPF (0-10); Urine Appearance CLEAR (Clear); Urine Color Yellow (Yellow); Urine Specific Gravity 1.024 (1.001-1.035); Urine Urobilinogen < 2.0 EU/DL (0.2-1.0); WBC,Urine 2 /HPF (0-6)
[2020-01-26] MEDS ORDERED: ONDANSETRON 4 MG/2 ML VIAL IV PRN (00:50)
[2020-01-26] MEDS ORDERED: ACETAMINOPHEN 325 MG TABLET PO PRN (00:50)
[2020-01-26] MEDS: SODIUM CHLORIDE 0.45% 1,000 ML IV SCH ×2 (01:05→08:49)
[2020-01-26 02:06] LABS: Troponin I 0.154 NG/ML (0.00-0.045)
[2020-01-26 06:21] LABS: Troponin I 0.156 NG/ML (0.00-0.045)
[2020-01-26 07:10] LABS: Troponin I 0.151 NG/ML (0.00-0.045)
[2020-01-26] MEDS ORDERED: traZODone 50 MG TABLET PO PRN (07:55)
[2020-01-26] MEDS ORDERED: ESCITALOPRAM 10 MG TABLET PO SCH (09:00)
[2020-01-26] MEDS: DOCUSATE SODIUM 100 MG CAPSULE PO SCH ×2 (09:16→21:40)
[2020-01-26] MEDS: CHOLECALCIFEROL 1,000 UNIT TABLET PO SCH (09:16)
[2020-01-26] MEDS: CHLORTHALIDONE 25 MG TABLET PO SCH (09:16)
[2020-01-26] MEDS: PANTOPRAZOLE 40 MG TABLET PO SCH (09:16)
[2020-01-26] MEDS: GABAPENTIN 600 MG TABLET PO SCH ×4 (09:16→21:39)
[2020-01-26] MEDS: METHENAMINE HIPPURATE 1 GM TABLET PO SCH ×2 (09:17→21:40)
[2020-01-26] MEDS: LOSARTAN 50 MG TABLET PO SCH (09:17)
[2020-01-26] MEDS: MIDODRINE 2.5 MG TABLET PO SCH ×3 (09:17→21:39)
[2020-01-26] MEDS ORDERED: MAGNESIUM SULF RIDER 2 GM in PREMIX 1 EACH IV ONE (13:58)
[2020-01-26] MEDS ORDERED: SODIUM CHLORIDE 0.45% 1,000 ML IV SCH ×2 (14:00→16:00)
[2020-01-26] MEDS: ASPIRIN EC 81 MG TABLET PO SCH (14:23)
[2020-01-26] MEDS: SODIUM CHLORIDE 0.9% 1,000 ML IV SCH ×2 (17:40→23:43)
[2020-01-26] MEDS: INSULIN GLARGINE 100 UNIT/ML SUBCUT SCH (21:18)
[2020-01-26] MEDS: sitaGLIPtin 100 MG TABLET PO SCH (21:40)
[2020-01-26] MEDS: ATORVASTATIN 20 MG TABLET PO SCH (21:40)
[2020-01-27 05:21] LABS: Basophils # 0.1 10*3/uL (0.0-0.2); Basophils % 0.9 % (0.0-0.8); Eosinophils # 0.2 10*3/uL (0.0-0.87); Eosinophils % 2.5 % (0.00-10.9); Hematocrit 35.5 VOL% (35.7-47.0); Hemoglobin 11.8 GM/DL (12.0-16.0); Immature Granulocytes % 0.3 %; Immature Granulocytes Absolute 0.02 #; Lymphocytes # 2.5 10*3/uL (1.4-4.0); Lymphocytes % 36.6 % (21.3-54.2); Mean Corpuscular HGB Conc 33.2 GM/DL (32-36); Mean Corpuscular Volume 87.4 FL (87-102); Mean Platelet Volume 13.7 FL (9.6-12.0); Monocytes % 9.1 % (1.7-12.7); Neutrophils % 50.6 % (38.7-73.9); Platelet Count 105 T/CUMM (130-400); Red Blood Count 4.06 MC/CUMM (3.8-5.5); Red Cell Distribution Width 15.1 % (9.3-17.3); White Blood Count 6.9 T/CUMM (4-12)
[2020-01-27 05:44] LABS: Microcytosis Slight
[2020-01-27 05:45] LABS: Hypochromasia Slight; Ovalocytes Slight; Platelet Estimate Decreased
[2020-01-27 05:47] LABS: Calcium 8.6 MG/DL (8.5-10.1); Osmolality,Calculated 277.7 MOS/KG (273-304)
[2020-01-27] MEDS: SODIUM CHLORIDE 0.9% 1,000 ML IV SCH ×3 (06:23→20:06)
[2020-01-27] MEDS: ESCITALOPRAM 10 MG TABLET PO SCH (08:43)
[2020-01-27] MEDS: DOCUSATE SODIUM 100 MG CAPSULE PO SCH ×2 (08:45→20:55)
[2020-01-27] MEDS: METHENAMINE HIPPURATE 1 GM TABLET PO SCH ×2 (08:45→20:56)
[2020-01-27] MEDS: CHOLECALCIFEROL 1,000 UNIT TABLET PO SCH (08:45)
[2020-01-27] MEDS: ASPIRIN EC 81 MG TABLET PO SCH (08:45)
[2020-01-27] MEDS: LOSARTAN 50 MG TABLET PO SCH (08:45)
[2020-01-27] MEDS: GABAPENTIN 600 MG TABLET PO SCH ×4 (08:46→20:55)
[2020-01-27] MEDS: MIDODRINE 2.5 MG TABLET PO SCH ×3 (08:46→20:55)
[2020-01-27] MEDS: PANTOPRAZOLE 40 MG TABLET PO SCH (08:46)
[2020-01-27] MEDS: CHLORTHALIDONE 25 MG TABLET PO SCH (08:46)
[2020-01-27] MEDS: POTASSIUM CHLORIDE 20 MEQ TABLET PO PRN ×3 (08:47→23:18)
[2020-01-27] MEDS: CYPROHEPTADINE 4 MG TABLET PO SCH ×2 (08:52→20:56)
[2020-01-27] MEDS: sitaGLIPtin 100 MG TABLET PO SCH (20:55)
[2020-01-27] MEDS: INSULIN GLARGINE 100 UNIT/ML SUBCUT SCH (20:56)
[2020-01-27] MEDS: ATORVASTATIN 20 MG TABLET PO SCH (20:56)
[2020-01-28] MEDS: POTASSIUM CHLORIDE 20 MEQ TABLET PO PRN (01:14)
[2020-01-28] MEDS: SODIUM CHLORIDE 0.9% 1,000 ML IV SCH ×4 (10:34→21:26)
[2020-01-28] MEDS: MIDODRINE 2.5 MG TABLET PO SCH ×3 (10:35→21:20)
[2020-01-28] MEDS: METHENAMINE HIPPURATE 1 GM TABLET PO SCH ×2 (10:35→21:20)
[2020-01-28] MEDS: CHOLECALCIFEROL 1,000 UNIT TABLET PO SCH (10:36)
[2020-01-28] MEDS: ASPIRIN EC 81 MG TABLET PO SCH (10:36)
[2020-01-28] MEDS: CYPROHEPTADINE 4 MG TABLET PO SCH ×2 (10:36→21:20)
[2020-01-28] MEDS: GABAPENTIN 600 MG TABLET PO SCH ×4 (10:37→21:20)
[2020-01-28] MEDS: ESCITALOPRAM 10 MG TABLET PO SCH (10:37)
[2020-01-28] MEDS: CHLORTHALIDONE 25 MG TABLET PO SCH (10:37)
[2020-01-28] MEDS: DOCUSATE SODIUM 100 MG CAPSULE PO SCH ×2 (10:37→21:20)
[2020-01-28] MEDS: PANTOPRAZOLE 40 MG TABLET PO SCH (10:38)
[2020-01-28] MEDS: LOSARTAN 50 MG TABLET PO SCH (10:38)
[2020-01-28] MEDS: ATORVASTATIN 20 MG TABLET PO SCH (21:20)
[2020-01-28] MEDS: sitaGLIPtin 100 MG TABLET PO SCH (21:20)
[2020-01-28] MEDS: INSULIN GLARGINE 100 UNIT/ML SUBCUT SCH (21:26)
[2020-01-29] MEDS: SODIUM CHLORIDE 0.9% 1,000 ML IV SCH ×2 (04:30→13:36)
[2020-01-29 08:00] VITALS: BP 139/70
[2020-01-29] MEDS: ESCITALOPRAM 10 MG TABLET PO SCH (10:46)
[2020-01-29] MEDS: ASPIRIN EC 81 MG TABLET PO SCH (10:47)
[2020-01-29] MEDS: METHENAMINE HIPPURATE 1 GM TABLET PO SCH (10:47)
[2020-01-29] MEDS: LOSARTAN 50 MG TABLET PO SCH (10:47)
[2020-01-29] MEDS: DOCUSATE SODIUM 100 MG CAPSULE PO SCH (10:48)
[2020-01-29] MEDS: CYPROHEPTADINE 4 MG TABLET PO SCH (10:48)
[2020-01-29] MEDS: GABAPENTIN 600 MG TABLET PO SCH ×2 (10:48→13:37)
[2020-01-29] MEDS: CHOLECALCIFEROL 1,000 UNIT TABLET PO SCH (10:48)
[2020-01-29] MEDS: MIDODRINE 2.5 MG TABLET PO SCH (10:48)
[2020-01-29] MEDS: CHLORTHALIDONE 25 MG TABLET PO SCH (10:49)
[2020-01-29] MEDS: PANTOPRAZOLE 40 MG TABLET PO SCH (10:49)
== END 2020-01-29 13:09 | disposition home or self-care (01) ==
LOC: EDBD → EDUNIT# → N.EDINP 19:25 → N.ED 19:25 → N.TELEN 23:53
PROVIDERS: ADMIT Family Medicine; ATTEND Family Medicine